=== PATIENT | female | born 1985 | race Caucasian/White ===

== ENCOUNTER 2019-05-19 08:47 | Emergency (ER) | payer MEDICAID ==
[~2019-05-19] VITALS: Ht 162.6 cm; Wt 113.4 kg
[2019-05-19 08:51] VITALS: BP 122/75; Ht 162.6 cm; Wt 113.4 kg
== END 2019-05-19 11:23 | disposition left against medical advice (07) ==
LOC: ED 08:47
DX: Z53.21 Procedure and treatment not carried out due to patient leaving prior to being seen by health care provider (principal)